=== PATIENT | male | born 1950 | race Caucasian/White ===

== ENCOUNTER 2017-05-26 09:00 | Day surgery (SDC) | payer MEDICARE, BC ==
[~2017-05-26] VITALS: Ht 188 cm; Wt 95.5 kg
[2017-05-26] MEDS ORDERED: FLOMAX0.4 MG PO (09:30)
[2017-05-26 09:35] LABS: HEMATOCRIT 47.9 % (42.0-54.0); HEMOGLOBIN 16.4 g/dL (13.5-17.5); MCH 31.8 pg (26.0-34.0); MCHC 34.2 g/dL (31.0-37.0); MCV 92.8 fL (80.0-100.0); MEAN PLATELET VOLUME 9.2 fL (7.4-10.4); RBC 5.16 10x6/uL (4.20-6.10); RDW 12.9 % (11.5-14.5); WBC 6.4 10x3/uL (4.8-10.8)
[2017-05-26 09:37] VITALS: BP 139/78; Ht 188 cm; Wt 95.5 kg
[2017-05-26 09:51] LABS: ANION GAP 12.9 mmol/L (8-16); CALCIUM 9.5 mg/dL (8.5-10.1); CARBON DIOXIDE 29.9 mmol/L (21.0-32.0); CREATININE - SERUM 1.6 mg/dL (0.6-1.3); POTASSIUM - SERUM 3.8 mmol/L (3.5-5.1)
== END 2017-05-26 11:50 | disposition home or self-care (01) ==
LOC: D.OPS 09:00
PROVIDERS: Anesthesiology
DX: Z12.11 Encounter for screening for malignant neoplasm of colon (principal); Z01.812 Encounter for preprocedural laboratory examination